=== PATIENT | female | born 1935 | race Caucasian/White ===

== ENCOUNTER 2017-11-29 10:28 | Outpatient (CLI) | payer MEDICARE ==
--- NOTE | 2017-11-29 13:23 | RAD ---
PA AND LATERAL VIEWS CHEST: HISTORY: Dyspnea. COMPARISON: 05/24/2017 FINDINGS: Pleural parenchymal opacity with associated left rib deformities are again seen. The heart size is n ormal. The aorta is tortuous. The lungs are well expanded without focal areas of consolidation, pne umothoraces, or pleural effusions. IMPRESSION: Stable exam. No acute process. POS: [facility]
== END 2017-11-29 10:29 | disposition home or self-care (01) ==
LOC: RAD 10:28
PROVIDERS: ATTEND Internal Medicine Critical Care Medicine
DX: R06.00 Dyspnea, unspecified (principal)
CPT/HCPCS: 71046

== ENCOUNTER 2018-07-12 10:56 | Outpatient (CLI) | payer MEDICARE | END 2018-07-12 10:57 | disposition home or self-care (01) | LOC: BICMAMMO 10:56 | PROVIDERS: ATTEND Internal Medicine | DX: Z12.31 Encounter for screening mammogram for malignant neoplasm of breast (principal); R92.1 Mammographic calcification found on diagnostic imaging of breast; Z85.118 Personal history of other malignant neoplasm of bronchus and lung | CPT/HCPCS: 77063; 77067 ==

== ENCOUNTER 2018-11-28 08:29 | Outpatient (CLI) | payer MEDICARE ==
--- NOTE | 2018-11-28 11:51 | MRI ---
MRI LUMBAR SPINE WITHOUT CONTRAST: Date: 11/28/18 HISTORY: Low back and right leg pain. COMPARISON: None. TECHNIQUE: MRI lumbar spine is performed without intravenous Gadolinium administration. Multisequential, multipl dia imaging is performed. FINDINGS: Appropriate T1 marrow signal intensity of lumbar vertebra. Lumbar spine vertebral body height is main tained. There is no fracture. No significant STIR hyperintensity to suggest vertebral body edema or l igamentous injury. There is mild edema involving the left pedicle and facet joint at L4-L5. There are T1 hypointense, T2 hyperintense lesions along the left aspect of S1 and S2 level, which tra verses the left S1 lateral recess, and minimally extends into the left S2 neural foramen. This lesion measures 2.0 x 1.3 cm. Smaller T1 hypointense, T2 hyperintense lesions are noted in the left and rig ht neural foramina at S1. Conus medullaris terminates at the upper aspect of L1. Symmetric signal intensity of the psoas muscles. T2 hyperintensities in the left and right renal fatimah ices may represent cysts. T12-L1: No significant central canal stenosis or foraminal narrowing. L1-L2: No significant central canal stenosis. Neural foramina are patent. L2-L3: Moderate loss of disc space height. Generalized disc bulge, minimal ligamentum flavum thicken ing, and mild facet hypertrophy result in mild stenosis of the thecal sac. Moderate to severe right a nd moderate left foraminal narrowing. L3-L4: Adequate disc hydration. Minimal generalized disc bulge, mild ligamentum flavum thickening, a nd facet hypertrophy result in mild central canal stenosis. There is narrowing of the left subarticul ar zone secondary to disc material with partial obscuration of the traversing left L4 nerve root. Rig ht neural foramen is patent. Moderate left foraminal narrowing. Small amount of fluid in both facet j oints. L4-L5: 3.5 mm anterolisthesis of L4 upon L5. Desiccation with mild loss of disc space height. Genera lized disc bulge, ligamentum flavum thickening, and facet hypertrophy result in mild to moderate cent ral canal stenosis. There is narrowing of both subarticular zones with some mass effect, without obsc uration of either traversing L5 nerve root. The mass effect upon the right subarticular zone is sligh tly greater than the contralateral side. There is a small amount of inferior disc extrusion in the ri ght subarticular zone which adds to the overall mass effect upon the traversing right L5 nerve root. Mild right and mild to moderate left neural foraminal narrowing. L5-S1: No significant loss of disc space height. No significant central canal stenosis. Neural chasidy maximo are patent bilaterally. IMPRESSION: 1. Intrinsic T1 hypointense, T2 hyperintense lesion at the S1 and S2 level. 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 The lesion at S2 may also represent a aggressive cystic lesion. However, evaluation is limited on the examination and postcontrast imaging is recommended. 2. Degenerative changes of the lumbar spine as described above. POS: [facility]
== END 2018-11-28 08:30 | disposition home or self-care (01) ==
LOC: TBSIIMAG 08:29
PROVIDERS: ATTEND Physical Medicine & Rehabilitation
DX: M54.5 Low back pain (principal); M79.604 Pain in right leg; R29.898 Other symptoms and signs involving the musculoskeletal system; M47.816 Spondylosis without myelopathy or radiculopathy, lumbar region; M89.9 Disorder of bone, unspecified
CPT/HCPCS: 72148

== ENCOUNTER 2019-06-02 15:23 | Emergency (ER) | payer MEDICARE ==
[2019-06-02 15:47] LABS: #Basophils 0.1 thou/uL (0.0-0.2); #Eosinphils 0.1 thou/uL (0.0-0.7); #Monocytes 0.5 thou/uL (0.11-0.59); #Neutrophils 5.1 thou/uL (1.40-6.50); %Basophils 0.8 % (0.0-1.0); %Eosinophils 0.8 % (0.0-10.0); %Lymphocytes 26.4 % (21.0-51.0); %Monocytes 6.2 % (0.0-10.0); %Neutrophils 65.8 % (42.0-75.0); Mean Corpuscular HGB CONC 33.7 g/dL (32.0-36.0); Mean Corpuscular Hemoglobin 31.2 pg (27.0-31.0); Mean Corpuscular Volume 92.8 fL (78.0-98.0); Mean Platelet Volume 7.8 fL (7.4-10.4); Platelet Count 289 thou/uL (130-400); RBC Distribution Width 11.7 % (11.5-14.5); Red Blood Cell (RBC) Count 4.17 mill/uL (4.20-5.40); White Blood Cell (WBC) Count 7.7 thou/uL (4.8-10.8)
[2019-06-02 16:09] LABS: ALT (SGPT) 11 U/L (8-55); AST (SGOT) 21 U/L (5-34); Albumin 4.2 g/dL (3.4-4.8); Alkaline Phosphatase 71 U/L (40-110); Anion Gap 15 mmol/L (10-20); BUN (Urea Nitrogen) 18 mg/dL (9.8-20.1); Bilirubin, Total 0.5 mg/dL (0.2-1.2); Calc. Creatinine Clearance 0 mL/min (70-130); Carbon Dioxide 29 mmol/L (23-31); Chloride 100 mmol/L (98-107); Estimated GFR-MDRD 56; Globulin 3.7 g/dL (2.4-3.5); Glucose 97 mg/dL (83-110); Lipase 29 U/L (8-78); Potassium 4.4 mmol/L (3.5-5.1); Protein, Total 7.9 g/dL (6.0-8.3); Sodium 140 mmol/L (136-145)
[2019-06-02] MEDS ORDERED: Ondansetron PF 4 MG/2 ML Vial ONE (16:10)
[2019-06-02] MEDS ORDERED: Ketorolac Tromethamine 30 MG/ML VIAL ONE (16:10)
[2019-06-02 16:53] LABS: Bilirubin Negative (Negative); Blood, Urine Negative (Negative); Clarity Turbid (Clear); Glucose, Urine (Dipstick) Normal (Negative); Leukocyte 500 Leu/uL (Negative); Nitrite Negative (Negative); Protein, Urine (Dipstick) 20 mg/dL (Neg-Trace); Urobilinogen Normal mg/dL (Less than 2); WBC/HPF Greater than 50 HPF (0-3)
[2019-06-02 17:01] LABS: Bacteria/HPF 2+ HPF (None Seen); RBC/HPF None Seen HPF (0-3)
== END 2019-06-02 17:40 | disposition home or self-care (01) ==
LOC: ERS 15:23
DX: K52.9 Noninfective gastroenteritis and colitis, unspecified (principal); I10 Essential (primary) hypertension; N39.0 Urinary tract infection, site not specified; E03.9 Hypothyroidism, unspecified; M19.90 Unspecified osteoarthritis, unspecified site; E78.1 Pure hyperglyceridemia; Z87.891 Personal history of nicotine dependence; Z79.899 Other long term (current) drug therapy
CPT/HCPCS: 36415; 80053; 81003; 81015; 83690; 85025; 96372; 96374; 96375; J0500; J1885; J2405

== ENCOUNTER 2019-06-05 09:55 | Inpatient (IN) | payer MEDICARE ==
[2019-06-05] MEDS ORDERED: metroNIDAZOLE 500 MG/100 ML BAG ONE (10:21)
[2019-06-05 10:57] LABS: #Basophils 0.1 thou/uL (0.0-0.2); #Eosinphils 0.1 thou/uL (0.0-0.7); #Lymphocytes 1.7 thou/uL (1.20-3.40); #Monocytes 0.7 thou/uL (0.11-0.59); #Neutrophils 4.6 thou/uL (1.40-6.50); %Basophils 0.7 % (0.0-1.0); %Eosinophils 1.6 % (0.0-10.0); %Lymphocytes 23.4 % (21.0-51.0); %Monocytes 9.9 % (0.0-10.0); %Neutrophils 64.5 % (42.0-75.0); Hemoglobin 12.7 g/dL (12.0-16.0); Mean Corpuscular HGB CONC 33.3 g/dL (32.0-36.0); Mean Platelet Volume 8.2 fL (7.4-10.4); Platelet Count 278 thou/uL (130-400); RBC Distribution Width 11.7 % (11.5-14.5); White Blood Cell (WBC) Count 7.1 thou/uL (4.8-10.8)
[2019-06-05 11:09] LABS: ALT (SGPT) 14 U/L (8-55); AST (SGOT) 31 U/L (5-34); Alkaline Phosphatase 70 U/L (40-110); Anion Gap 13 mmol/L (10-20); BUN (Urea Nitrogen) 15 mg/dL (9.8-20.1); Bilirubin, Total 0.4 mg/dL (0.2-1.2); Calc. Creatinine Clearance 0 mL/min (70-130); Calcium 9.7 mg/dL (7.8-10.44); Carbon Dioxide 26 mmol/L (23-31); Chloride 102 mmol/L (98-107); Estimated GFR-MDRD 46; Globulin 3.5 g/dL (2.4-3.5); Glucose 100 mg/dL (83-110); Potassium 3.9 mmol/L (3.5-5.1); Protein, Total 7.5 g/dL (6.0-8.3); Sodium 137 mmol/L (136-145)
[2019-06-05 12:29] LABS: Bilirubin Negative (Negative); Blood, Urine Trace (Negative); Clarity Turbid (Clear); Glucose, Urine (Dipstick) Normal (Negative); Leukocyte 500 Leu/uL (Negative); Nitrite Negative (Negative); Protein, Urine (Dipstick) 30 mg/dL (Neg-Trace); WBC/HPF 21-50 HPF (0-3)
[2019-06-05 12:37] LABS: Bacteria/HPF 2+ HPF (None Seen)
[2019-06-05] MEDS ORDERED: ISOVUE-370 76%-LOCM 1 ML ONE (12:47)
[2019-06-05] MEDS ORDERED: Iopamidol 370 76% 50 ML VIAL FS ONE (12:47)
--- NOTE | 2019-06-05 13:11 | CT ---
EXAM: CT abdomen and pelvis with IV contrast PROVIDED CLINICAL HISTORY: Abdominal pain COMPARISON: 01/10/2017 FINDINGS: The visualized lung bases are free of significant opacity. Small hiatal hernia. Cysts involving the right kidney and liver are again seen. Stable right renal calcification, probably vascular. The solid abdominal organs demonstrate an otherwise unremarkable CT appearance. There is no bowel dilatation, inflammatory fat stranding, free fluid or free air apparent. There is n o evidence for appendicitis. A pessary is now noted. There is apparent mural thickening in the region of the anus. There is a circumscribed focus of low density within the perineal soft tissues at the anterior aspect of the anus and posterior to the vagina. This measures at least 2 cm in AP dimension and about 3.2 cm in craniocaudal dimension. No regional lymph node enlargement apparent. Extensive multifocal atherosclerotic vascular calcificat ions are seen. The osseous structures demonstrate no concerning lytic or blastic lesions. IMPRESSION: Mural thickening involving the anus with adjacent focus of low density. Findings may reflect infectio us change with abscess. Other etiologies are not excluded. Correlation with the physical examination is recommended.
[2019-06-05] MEDS ORDERED: Amlodipine 5 MG TAB PO SCH (19:00)
[2019-06-05] MEDS ORDERED: metroNIDAZOLE 500 MG in Premix Bag 1 BAG IVPB SCH ×2 (20:00→22:00)
[2019-06-05] MEDS: Atenolol 50 MG TAB PO SCH (20:10)
[2019-06-05] MEDS: Sodium Chloride 0.9% 1,000 ML IV SCH (20:12)
[2019-06-05] MEDS: Latanoprost 0.005% Ophth Soln 2.5 ml Bottle EA EYE SCH (20:12)
[2019-06-05] MEDS ORDERED: Famotidine/PF 20 mg/2ml Vial SLOW IVP SCH (21:00)
[2019-06-05] MEDS ORDERED: Ondansetron ODT 4 MG TAB PO PRN (22:26)
[2019-06-05] MEDS: Ondansetron PF 4 MG/2 ML Vial IVP PRN (22:32)
[2019-06-05] MEDS ORDERED: Vancomycin HCl 25 MG/ML Oral PO SCH (23:30)
[2019-06-05] MEDS ORDERED: Saccharomyces boulardii 250 MG CAP PO SCH (23:30)
--- NOTE | 2019-06-06 01:04 | HP ---
CHIEF COMPLAINT: Abdominal pain. HISTORY OF PRESENT ILLNESS: The patient is an 83-year-old female with past medical history of hypertension, hypothyroidism, who presents to the hospital with complaints of abdominal pain and diarrhea going on for the past 7 days. The patient stated that she came into the ER a few days ago on 06/03, with diarrhea and she was discharged home with Cipro and Flagyl; however, she stated that her diarrhea actually got worse, so she came into the ER today for further evaluation. The patient states that she did not have any fevers; however, today she had some chills, her diarrhea was getting worse, she has had about 4 or 5 bouts of loose stool. The patient states that she has been eating and drinking and has been able to keep her liquids down, however, her diarrhea has gotten worse. The patient states that this has happened to her in the past and she did follow up with GI, however, no colonoscopy was done. Her last colonoscopy was done, I believe, in 2011 or 2012. The patient denies eating out anywhere. She denies taking any new medications. She denies any fevers. Denies any sick contacts. Denies any blood in her stool except when she wipes, she gets a little bit of blood in her toilet paper. PAST MEDICAL HISTORY: 1. COPD, history of lung cancer status post radiation. 2. Diverticulitis. 3. Dyslipidemia. 4. Hypertension. 5. Hypothyroidism. 6. Depression. PAST SURGICAL HISTORY: She has had a cholecystectomy, appendectomy, hysterectomy, bladder suspension surgery, hemorrhoid surgery, sinus surgery, cataract surgery, foot surgery, and knee surgery. SOCIAL HISTORY: She denies any alcohol use, tobacco use, or recreational drug use. FAMILY HISTORY: She denies any family history of cancer. CODE STATUS: She is a full code. ALLERGIES: SHE IS ALLERGIC TO: 1. CITALOPRAM. 2. CODEINE. 3. LANSOPRAZOLE. 4. PENICILLIN. 5. SOMA. 6. TAGAMET. 7. VASOTEC. REVIEW OF SYSTEMS: All negative except for the ones mentioned above in the HPI. MEDICATIONS: She takes: 1. Amlodipine 5 mg daily. 2. Atenolol 50 mg at bedtime. 3. Bumex 1 mg daily, which she has held today. 4. Synthroid 100 mcg daily. 5. Lovastatin 20 mg daily. 6. Sertraline 50 mg daily. 7. Ranitidine 300 mg daily. PHYSICAL EXAMINATION: VITAL SIGNS: Her temperature is 98.8, heart rate of 80, blood pressure 190/80, respirations are 18, and 98% on room air. GENERAL: She is awake, alert, and oriented x3. Does not appear in any distress. HEENT: Normocephalic, atraumatic. No lymphadenopathy noted. Pupils are equal, reactive to light. CV: S1 and S2 present. No murmurs, rubs, or gallops. LUNGS: Clear to auscultation. No rhonchi or wheezes noted. ABDOMEN: Soft. Bowel sounds present x2. She does have pain upon palpation all around her abdomen, severe more to her left lower quadrant and around her epigastric area. NEUROVASCULAR: No focal deficits noted. SKIN: No cuts, lesions, or bruises noted. LABORATORY RESULTS: WBCs of 7.1, hemoglobin of 12.7, hematocrit of 38.1, platelets of 278. Chemistry; sodium 137, potassium of 3.9, BUN of 15, creatinine 1.13. Her LFTs are normal. Her urine does indicate she does have some leukocyte esterase and some wbc's. She did have a CT of abdomen and pelvis, which indicated possible rectal abscesses indicating mural thickening involving the anus with adjacent focus of low density. Findings may reflect infectious changes with abscess. ASSESSMENT AND PLAN: The patient is a very pleasant 83-year-old female, who presents to the hospital with complaints of abdominal pain and diarrhea. 1. Diarrhea, acute, could be possible secondary to infectious colitis versus ischemic colitis versus irritable bowel syndrome versus inflammatory bowel syndrome. We will start the patient on broad-spectrum antibiotics with Cipro and Flagyl. We will check C diff and stool cultures and also ova and parasite. I will get Surgery to evaluate for possible mural abscess. Also, I will get GI. We will check a TSH. We will also check a lactic acid. Upon reviewing her records back in 2017, she did have a CTA to rule out any ischemic colitis that was ruled out. The patient stated that she did follow up with GI, however, no followup colonoscopy was done. The patient states that she has had bouts of constipation and diarrhea, could be possibly irritable bowel syndrome. We will start her on some IV hydration and put her on clear liquid diet and we will monitor her closely. 2. Mild dehydration, mild acute kidney injury. We will continue some hydration and continue to monitor. 3. Possible urinary tract infection. She is already on Cipro and Flagyl, which the ciprofloxacin should cover her urinary tract infection. 4. Hypertension. I will continue her home medications and I will hold the Bumex. 5. DVT prophylaxis. Put the patient on some SCDs. Job ID: [id number]
[2019-06-06] MEDS: Acetaminophen 325 MG TAB PO PRN ×2 (01:09→16:15)
[2019-06-06] MEDS: Sodium Chloride 0.9% 1,000 ML IV SCH ×2 (05:53→18:37)
[2019-06-06] MEDS ORDERED: Levothyroxine Sodium 100 MCG TAB PO SCH (06:00)
[2019-06-06 06:25] LABS: #Eosinphils 0.1 thou/uL (0.0-0.7); #Lymphocytes 1.8 thou/uL (1.20-3.40); #Monocytes 0.9 thou/uL (0.11-0.59); #Neutrophils 4.4 thou/uL (1.40-6.50); %Basophils 0.5 % (0.0-1.0); %Eosinophils 0.8 % (0.0-10.0); %Lymphocytes 24.9 % (21.0-51.0); %Monocytes 12.5 % (0.0-10.0); %Neutrophils 61.4 % (42.0-75.0); Hemoglobin 11.6 g/dL (12.0-16.0); Mean Corpuscular HGB CONC 33.5 g/dL (32.0-36.0); Mean Corpuscular Hemoglobin 30.9 pg (27.0-31.0); Mean Corpuscular Volume 92.3 fL (78.0-98.0); Mean Platelet Volume 8.8 fL (7.4-10.4); Platelet Count 185 thou/uL (130-400); RBC Distribution Width 11.8 % (11.5-14.5); Red Blood Cell (RBC) Count 3.74 mill/uL (4.20-5.40); White Blood Cell (WBC) Count 7.2 thou/uL (4.8-10.8)
[2019-06-06 06:48] LABS: ALT (SGPT) 16 U/L (8-55); AST (SGOT) 36 U/L (5-34); Albumin 3.5 g/dL (3.4-4.8); Alkaline Phosphatase 61 U/L (40-110); Anion Gap 14 mmol/L (10-20); BUN (Urea Nitrogen) 13 mg/dL (9.8-20.1); Bilirubin, Total 0.5 mg/dL (0.2-1.2); Calc. Creatinine Clearance 53 mL/min (70-130); Calcium 8.8 mg/dL (7.8-10.44); Carbon Dioxide 22 mmol/L (23-31); Chloride 106 mmol/L (98-107); Estimated GFR-MDRD 55; Globulin 2.8 g/dL (2.4-3.5); Glucose 98 mg/dL (83-110); Potassium 4.1 mmol/L (3.5-5.1); Protein, Total 6.3 g/dL (6.0-8.3); Sodium 138 mmol/L (136-145)
[2019-06-06] MEDS: Ondansetron PF 4 MG/2 ML Vial IVP PRN ×2 (08:44→18:39)
[2019-06-06] MEDS: Saccharomyces boulardii 250 MG CAP PO SCH (08:44)
[2019-06-06] MEDS: Amlodipine 5 MG TAB PO SCH (08:45)
[2019-06-06] MEDS: Vancomycin HCl 25 MG/ML Oral PO SCH ×4 (08:46→20:52)
[2019-06-06] MEDS: Enoxaparin Sodium 40 MG/0.4 ML SYRINGE SC SCH (08:46)
[2019-06-06] MEDS ORDERED: Aspirin 81 mg Enteric Coated Tablet PO SCH (09:00)
[2019-06-06] MEDS ORDERED: Aspirin Chewable 81 MG TAB PO SCH (09:00)
[2019-06-06 15:03] VITALS: BMI 33.7
--- NOTE | 2019-06-06 17:06 | PDOC.GSPN ---
Surgery Progress Note: Subj - Subjective Narrative: Patient seen last night just before midnight. Full consult note to follow. Admitted with lower abdominal pain, but concern for perianal abscess on CT. Patient states she had left lower quadrant pain for about a week, with diarrhea since coming to the ER a few days ago and starting Cipro and Flagyl. She states she has taken Cipro in the past without problems and thinks the Flagyl is giving her the diarrhea. Some anal pain due to hemorrhoids but not severe. Stool for C. difficile had been sent when I saw her but was still pending. On exam she had some mild tenderness in the left lower quadrant. Extensive circumferential inflamed hemorrhoids but no induration and erythema or fluctuance to suggest perianal abscess. I believe CT findings are explained by her extensive hemorrhoidal disease. No further surgical intervention needed urgently, since hemorrhoids are not thrombosed and only mildly symptomatic. When I saw her she was adamant that Flagyl be discontinued since she felt that it was causing her diarrhea. I recommended continuing this until her C. difficile came back, but she did not want to receive any more Flagyl even IV, so I discontinued this per her request. I did order by mouth vancomycin until her C. difficile came back. This is now negative. No evidence of colitis on CT so no clear indication for antibiotics at this time. Further management per her medical team. I am signing off; please call if further concerns. Surgery Progress Note: Obj - Vital signs Vital signs: Vital Signs - Most Recent Temp Pulse Resp BP Pulse Ox 97.7 F 65 18 112/70 95 06/06/19 16:00 06/06/19 16:00 06/06/19 16:00 06/06/19 16:00 06/06/19 16:00 Surgery Progress Note: Results - Labs Result Diagrams: 06/06/19 05:42 06/06/19 05:42 Lab results: Laboratory Results - last 24 hr 06/06/19 06/06/19 05:42 05:42 WBC 7.2 RBC 3.74 L Hgb 11.6 L Hct 34.5 L MCV 92.3 MCH 30.9 MCHC 33.5 RDW 11.8 Plt Count 185 MPV 8.8 Neutrophils % 61.4 Lymphocytes % 24.9 Monocytes % 12.5 H Eosinophils % 0.8 Basophils % 0.5 Neutrophils # 4.4 Lymphocytes # 1.8 Monocytes # 0.9 H Eosinophils # 0.1 Basophils # 0.0 Sodium 138 Potassium 4.1 Chloride 106 Carbon Dioxide 22 L Anion Gap 14 BUN 13 Creatinine 0.96 Estimated GFR (MDRD) 55 Glucose 98 Calcium 8.8 Total Bilirubin 0.5 AST 36 H ALT 16 Alkaline Phosphatase 61 Serum Total Protein 6.3 Albumin 3.5 Globulin 2.8 Albumin/Globulin Ratio 1.3
--- NOTE | 2019-06-06 17:07 | CON ---
DATE OF CONSULTATION: 06/06/2019 CONSULTING PROVIDER: Dr. Marybel Swan. REASON FOR CONSULTATION: Left lower quadrant abdominal pain, diarrhea. HISTORY OF PRESENT ILLNESS: The patient is an 83-year-old female with past medical history of hypertension, hypothyroidism, fibromyalgia, COPD, lung cancer status post radiation therapy, hyperlipidemia, depression, and diverticulitis, presenting with complaints of diarrhea and left lower quadrant abdominal pain. She said that she was in her usual state of health until approximately one and half weeks ago when she began having acute onset of left lower quadrant abdominal pain characterized as a soreness/squeezing type pain that would radiate to the generalized abdomen, was intermittent, but would occur most days and lasted all day, and reached a severity of 8/10. The pain was worse with pressure to the abdomen, eating, and having a bowel movement, better with use of Zofran and placement of the heating pad primarily over the left lower quadrant. Associated symptoms included increased midepigastric abdominal pain, increased eructation, nausea without vomiting, subjective chills and constipation. She states that over the last week and a half, she has been having a change in her bowel habits, having approximately 4 to 5 formed/semi-solid bowel movements per day that were hard and hard to pass and would require increased straining in order to facilitate defecation. She also endorsed increased mucus with expulsion of these bowel movements as well. With the increase of lower back pain, she had been recently taking Tylenol with codeine, but otherwise had been adherent to only Tylenol with the last use of codeine approximately 2 to 3 weeks ago. With the worsening of her pain and diarrhea prompted her to seek healthcare assistance in the [facility] ER on June 03, she was ultimately diagnosed with colitis (presumably diverticulitis) and placed on Cipro and Flagyl; however, over the next 24 to 48 hours, her symptoms worsened with increased abdominal pain and diarrhea, then prompted her to return to the ER. Upon re-initiation of antibiotic therapy including metronidazole as a monotherapy, the patient has been having decrease in her abdominal pain and states that her frequency of bowel movements has improved significantly, having only one bowel movement within the last 12 to 24 hours. Otherwise, she denies any vomiting, melena, hematochezia, hematemesis, dysphagia, odynophagia, or weight loss. REVIEW OF SYSTEMS: A 10-category review of systems was obtained with all responses negative except for the pertinent positives as listed in HPI. PAST MEDICAL HISTORY: As per HPI. PAST SURGICAL HISTORY: Cholecystectomy, appendectomy, hysterectomy, hemorrhoid surgery, sinus surgery, cataract surgery, foot surgery, knee surgery, and bladder suspension surgery (presumably with placement of a pessary). FAMILY HISTORY: She denies any GI malignancies. SOCIAL HISTORY: Denies any tobacco, alcohol, or illicit drug use. OUTPATIENT MEDICATIONS: Reviewed. ALLERGIES: FAMOTIDINE, LANSOPRAZOLE, SULFAMETHOXAZOLE, CARISOPRODOL, CODEINE, ENALAPRIL, ERYTHROMYCIN, SOMA, TAGAMET, AND VASOTEC. PHYSICAL EXAMINATION: VITAL SIGNS: Temperature 98.2, pulse 74, blood pressure 108/52, respiratory rate 22, saturating 93% on room air. GENERAL: The patient was lying in bed, in no acute distress. Alert and oriented x4. HEENT: Normocephalic and atraumatic. NECK: Supple. No JVD or scleral icterus noted. CARDIOVASCULAR: Regular rate and rhythm with no discernible murmurs, gallops, or rubs. RESPIRATORY: Clear to auscultation bilaterally with no discernible wheezes or rales. ABDOMEN: Hypoactive bowel sounds. Soft, nondistended. Tenderness to palpation in all abdominal quadrants. EXTREMITIES: No cyanosis, clubbing, or edema. LABORATORY DATA: CBC with a white blood cell count of 7.2, hemoglobin 11.6, hematocrit 34.5, platelets 185. Chemistry with a sodium of 138, potassium 4.1, chloride 106, CO2 22, BUN 13, creatinine 0.96, glucose 98, AST 36, ALT 16, alkaline phosphatase 61, total bilirubin 0.5. TSH 0.29. Stool studies including lactoferrin, C diff, and ova and parasites were all negative. IMAGING DATA: CT of the abdomen and pelvis obtained on June 05, 2019, showed a small hiatal hernia, mural thickening within the wall of the anus with a circumscribed focus within the wall concerning for possible abscess formation. No mention was made of the sigmoid colon or any inflammation/fat stranding associated in this region. ASSESSMENT AND PLAN: The patient is an 83-year-old female with past medical history of hypertension, hypothyroidism, fibromyalgia, chronic obstructive pulmonary disease, lung cancer status post XRT, hyperlipidemia, depression, and prior history of diverticulitis, presenting with left lower quadrant abdominal pain and associated diarrhea. Left lower quadrant abdominal pain/diarrhea. The patient is presenting with fairly acute onset of increased left lower quadrant abdominal pain characterized as a soreness/squeezing type sensation that generalized to the entire abdomen. In conjunction with the appearance of this pain, she has also been having a change in her bowel habits, having approximately 4 to 5 formed/semi-solid bowel movements per day that were hard and hard to pass and required increased straining in order to facilitate defecation. On her initial evaluation to the ER, she did not exhibit an elevated white blood cell count nor any significant derangements consistent with some underlying process. She was ultimately discharged home with Cipro and Flagyl for repeat bout of diverticulitis; however, with worsening of her symptoms, it prompted her to return to the ER with the current clinical presentation. At this time, she appears to be improving with decreased frequency of bowel movements over the last 12 to 24 hours, although she does continue to have increased left lower quadrant abdominal pain. At this time, the differential could include a repeat bout of diverticulitis has been incompletely treated with antibiotics, constipation with encopresis, hyperthyroidism (given low TSH) segmental colitis associated with diverticular disease and/or GI neoplasm (less likely). Upon chart review, her most recent colonoscopy was approximately 5 to 7 years ago with normal findings during that procedure (although records not are not available for review at this time). RECOMMENDATIONS: 1. Would continue with treatment for diverticulitis with antibiotic therapy for a total duration of therapy of 7 days given that this could be incompletely treated diverticulitis and especially given her history of diverticulitis in the past. 2. Would refrain from any antimotility agents in this patient given her normalization of stool frequency within the last 12 to [address] the patient on Citrucel as part of fiber supplementation to normalize her stool consistency/habits. 4. Would consider decreasing her levothyroxine given evidence of over-supplementation. 5. Would refrain from any antimotility agents at this time, including narcotics if possible. 6. Continue with IV fluid resuscitation. We will continue to follow. Please call with any questions. Job ID: [id number]
[2019-06-06] MEDS: Atenolol 50 MG TAB PO SCH (20:52)
[2019-06-06] MEDS: Latanoprost 0.005% Ophth Soln 2.5 ml Bottle EA EYE SCH (20:52)
--- NOTE | 2019-06-07 00:21 | CON ---
DATE OF CONSULTATION: 06/05/2019 REASON FOR CONSULT: Possible perianal abscess. HISTORY OF PRESENT ILLNESS: Ms. Ordoñez is an 83-year-old woman, who initially presented to the emergency room a few days ago with a several-day history of lower abdominal pain and loose stools. She was given Cipro and Flagyl, but states that the diarrhea got much worse and the abdominal pain was now better, so she returns to the emergency room. She underwent a CT of the abdomen and pelvis. No evidence of colitis was seen. However, she did have some changes in the perianal abscess which was felt to be suspicious for possible perianal abscess with some mural thickening and a circumscribed focus of low density in the anterior aspect. The patient denies any significant perianal pain, although she states that she does have some soreness in that area due to her hemorrhoids flaring with profuse diarrhea. At the time of her admission, she was having frequent liquid bowel movements and her nurse had sent some stool samples to the lab for C diff. However, these results were not back when I saw her. The patient states that she has taken ciprofloxacin before and not had any problems with it and that she believes that her diarrhea is due to the Flagyl. She had been ordered to have IV Flagyl, but did not want to get this. The patient states that she is keeping down liquids, but having profuse diarrhea. PAST MEDICAL HISTORY: COPD, lung cancer status post radiation, hypertension, hypothyroidism, hyperlipidemia, history of diverticulitis. PAST SURGICAL HISTORY: Cholecystectomy, appendectomy, hysterectomy, bladder suspension, hemorrhoid surgery, sinus surgery, cataract, foot surgery, knee surgery. SOCIAL HISTORY: She does not smoke, drink, or use illicit drugs. FAMILY HISTORY: Noncontributory. ALLERGIES: SHE REPORTS ALLERGIES TO PENICILLIN, LANSOPRAZOLE, CODEINE, CITALOPRAM, SOMA, TAGAMET AND VASOTEC. REVIEW OF SYSTEMS: Ten-system review of systems is negative except per HPI. She did feel like she was having some chills earlier in the day, but none at the time that I saw her. MEDICATIONS: Outpatient medications include, 1. Amlodipine. 2. Atenolol. 3. Bumex. 4. Synthroid. 5. Lovastatin. 6. Sertraline. 7. Ranitidine. Inpatient medications include, 1. Amlodipine. 2. Aspirin. 3. IV Cipro and Flagyl. 4. Synthroid. 5. Zoloft. 6. Latanoprost eyedrops. 7. Atenolol. 8. Multiple p.r.n. PHYSICAL EXAMINATION: VITAL SIGNS: The patient is afebrile. Heart rate 70, respirations 19, 92% saturated on room air, blood pressure 180/69. GENERAL: Reveals an ill-appearing elderly woman, in no acute distress, sitting on the toilet, but able to transfer herself back to the bed. HEENT: Unremarkable. NECK: Supple without lymphadenopathy. HEART: Regular in its rate and rhythm without murmurs, rubs, or gallops. LUNGS: Clear to auscultation bilaterally. ABDOMEN: Soft and nondistended. She has mild tenderness to palpation in the left lower quadrant without rigidity, rebound, or guarding. No palpable masses or hernias. She has an overhanging pannus. EXTREMITIES: Warm and well perfused without significant edema. NEURO: No focal deficits. PSYCHIATRIC: Alert, oriented, and appropriate. : Anal exam reveals circumferential inflamed external and some prolapsing internal hemorrhoids. Digital rectal examination was performed. No significant tenderness, fluctuance, or induration in the perianal area. IMAGING: CT images are reviewed and I agree with the written report. LABORATORY DATA: White count is normal without a left shift, hematocrit 38, platelets 278. BUN 15, creatinine mildly elevated at 1.13. Other electrolytes are normal and LFTs are normal. ASSESSMENT: Left lower quadrant pain and diarrhea consistent with colitis, but without evidence of diverticulitis or colitis seen on CT. The patient did not want to be on Flagyl p.o. or IV, but since her Clostridium diff screening was still pending at the time I saw her, I recommended that she start oral Flagyl, she was agreeable to this. I also recommended Florastor for her GI symptoms. She does not have any evidence of a perianal abscess and I believe that the findings noted on CT are attributable to her hemorrhoidal disease. This is longstanding and she has already gone through surgery for this in the past. These are not terribly symptomatic and she does not want to undergo any surgical intervention for these nor would this be feasible in the setting of her acute illness. Symptomatic management is recommended. No evidence of a surgical process. I am signing off for now, but please consult if she develops any further issues. Job ID: [id number]
[2019-06-07] MEDS ORDERED: Simethicone Chewable 80 MG TAB PO PRN (00:23)
[2019-06-07] MEDS: Acetaminophen 325 MG TAB PO PRN ×2 (00:48→20:01)
[2019-06-07] MEDS: Levothyroxine Sodium 75 MCG TAB PO SCH (05:34)
[2019-06-07] MEDS: Enoxaparin Sodium 40 MG/0.4 ML SYRINGE SC SCH (08:13)
[2019-06-07] MEDS: Amlodipine 5 MG TAB PO SCH (08:13)
[2019-06-07] MEDS: Saccharomyces boulardii 250 MG CAP PO SCH (08:13)
[2019-06-07] MEDS: Citrucel 500 MG TAB PO SCH (08:14)
[2019-06-07] MEDS: metroNIDAZOLE 500 MG TAB PO SCH ×2 (16:00→20:02)
--- NOTE | 2019-06-07 18:01 | PRG ---
DATE OF SERVICE: 06/07/2019 REASON FOR CONSULTATION: Left lower quadrant abdominal pain, diarrhea. SUBJECTIVE: Today, the patient states that she did well overnight with no acute events or problems. She did have one episode of diarrhea last night but has not had a bowel movement as of yet today. The consistency of her bowel movement last night was roughly semi-solid with no difficulty with defecation. She also states that her left lower quadrant abdominal pain has significantly improved with it only being mildly tender to palpation today. Otherwise, she denies any nausea, vomiting, fevers, chills, hematemesis, melena, hematochezia. OBJECTIVE: VITAL SIGNS: Temperature 97.3, pulse 60, blood pressure 143/54, respiratory rate 20, saturating 94% on room air. GENERAL: The patient was sitting at bedside, in no acute distress. Alert and oriented x4. CARDIOVASCULAR: Regular rate and rhythm. RESPIRATORY: Clear to auscultation bilaterally. ABDOMEN: Normoactive bowel sounds. Soft, nondistended, mild tenderness in the left upper quadrant and left lower quadrant. EXTREMITIES: No cyanosis, clubbing, or edema. LABORATORY DATA: No current studies are available for review. ASSESSMENT AND PLAN: The patient is an 83-year-old female with past medical history of hypertension, hypothyroidism, fibromyalgia, chronic obstructive pulmonary disease, lung cancer status post XRT, hyperlipidemia, depression, and prior history of diverticulitis presenting with left lower quadrant abdominal pain and associated diarrhea. Left lower quadrant abdominal pain/diarrhea. The patient initially presented with acute onset of left lower quadrant abdominal pain that generalized to the entire abdomen and was associated with a change in her bowel habits having approximately 4 to 5 formed/semi-solid bowel movements per day. She was seen in the ER prior to the actual hospital admission and diagnosed with diverticulitis and placed on ciprofloxacin and Flagyl but did have worsening of her symptoms prompting her return to the ER. At this point, she is improving with more conservative measures including antibiotic administration, IV fluids and low-fiber diet with improvement of her stooling pattern and pain over the last 12 to 24 hours. At this time, the more likely explanation for her pain would be a repeat bout of diverticulitis that was incompletely treated prior to this hospital admission. However, the differential could also include constipation with encopresis, hyperthyroidism, segmental colitis associated with diverticular disease. RECOMMENDATIONS: 1. We will continue treatment of the diverticulitis with antibiotic therapy for a total duration of therapy of 7 days with ciprofloxacin and metronidazole. 2. Would refrain from any antimotility agents at this time given decreased frequency of bowel movements and normalization of her stool consistency. 3. Continue Citrucel as part of fiber supplementation. 4. We will limit narcotics if possible. 5. With advancing the patient's diet, would consider discontinuation of IV fluids. Given the improvement of her abdominal pain and return of more normal stool consistency, she could be potentially discharged as early as tomorrow with administration of oral antibiotics and completion of her therapy at home and follow up within the GI clinic in 2 to 3 weeks. We will continue to follow. Please call with any questions. Job ID: [id number]
[2019-06-07] MEDS: Cipro 250 MG TAB PO SCH (19:57)
[2019-06-07] MEDS: Atenolol 50 MG TAB PO SCH (19:57)
[2019-06-07] MEDS: Latanoprost 0.005% Ophth Soln 2.5 ml Bottle EA EYE SCH (19:58)
[2019-06-08] MEDS: Levothyroxine Sodium 75 MCG TAB PO SCH (05:36)
[2019-06-08] MEDS: Cipro 250 MG TAB PO SCH (05:36)
[2019-06-08] MEDS: Sodium Chloride 0.9% 1,000 ML IV SCH (07:37)
--- NOTE | 2019-06-08 08:23 | PDOC.HOSPP ---
- Subjective Encounter Date: 06/07/19 Encounter Time: 11:30 Subjective: pt up in bed no complains - Objective Vital Signs & Weight: Vital Signs (12 hours) Temp Pulse Resp BP Pulse Ox 06/08/19 07:50 97.5 F L 60 19 128/55 L 93 L Weight Admit Weight 173 lb Weight 173 lb I&O: 06/07/19 06/08/19 06/09/19 06:59 06:59 06:59 Intake Total 800 880 Balance 800 880 Result Diagrams: 06/06/19 05:42 06/06/19 05:42 Hospitalist ROS - Review of Systems Cardiovascular: denies: chest pain, palpitations, orthopnea, paroxysmal noc. dyspnea, edema, light headedness, other Gastrointestinal: denies: nausea, vomiting, abdominal pain, diarrhea, constipation, melena, hematochezia, other Genitourinary: denies: dysuria, frequency, incontinence, hematuria, retention, other - Medication Medications: Active Medications Generic Name Dose Route Start Last Admin Trade Name Freq PRN Reason Stop Dose Admin Acetaminophen 650 mg 06/05/19 17:48 06/07/19 20:01 Tylenol PO 650 mg Q4H PRN Administration Headache/Fever/Mild Pain (1-3) Amlodipine Besylate 5 mg 06/06/19 09:00 06/07/19 08:13 Norvasc PO 5 mg QAM VILMA Administration Atenolol 50 mg 06/05/19 21:00 06/07/19 19:57 Tenormin PO 50 mg HS VILMA Administration Ciprofloxacin 250 mg 06/07/19 20:00 06/08/19 05:36 Cipro PO 250 mg BID@0600,2000 VILMA Administration Enoxaparin Sodium 40 mg 06/06/19 09:00 06/07/19 08:13 Lovenox SC 40 mg 0900 VILMA Administration Sodium Chloride 1,000 mls @ 50 mls/hr 06/05/19 19:15 06/08/19 07:37 Normal Saline 0.9% IV Not Given .Q20H VILMA Latanoprost 1 drop 06/05/19 21:00 06/07/19 19:58 Xalatan 0.005% Ophth Soln EA EYE 1 drop HS VILMA Administration Levothyroxine Sodium 75 mcg 06/07/19 06:00 06/08/19 05:36 Synthroid PO 75 mcg 0600 VILMA Administration Methylcellulose 500 mg 06/07/19 09:00 06/07/19 08:14 Citrucel PO Not Given DAILY VILMA Metronidazole 500 mg 06/07/19 15:00 06/07/19 20:02 Flagyl PO Not Given TID VILMA Ondansetron HCl 4 mg 06/05/19 22:26 06/06/19 18:39 Zofran IVP 4 mg Q6H PRN Administration Nausea/Vomiting Saccharomyces Boulardii 250 mg 06/06/19 09:00 06/07/19 08:13 Florastor PO 250 mg DAILY VILMA Administration Sertraline HCl 50 mg 06/05/19 21:00 06/07/19 20:00 Zoloft PO 50 mg HS VILMA Administration Simethicone 80 mg 06/07/19 00:23 06/07/19 00:45 Mylicon Chewable PO 80 mg PCHS PRN Administration Gas Pain Sodium Chloride 10 ml 06/07/19 21:00 06/07/19 20:01 Flush - Normal Saline IVF 10 ml Q12HR VILMA Administration - Exam Neck: negative: supple, symmetric, no JVD, no thyromegaly, no lymphadenopathy, no carotid bruit, JVD Heart: negative: RRR, no murmur, no gallops, no rubs, normal peripheral pulses, irregular, diminshed peripheral pulses, murmur present, II/IV, III/IV Respiratory: negative: CTAB, no wheezes, no rales, no ronchi, normal chest expansion, no tachypnea, normal percussion, rales, rhonchi, tachypneic, wheezes Hosp A/P (1) Diarrhea Code(s): R19.7 - DIARRHEA, UNSPECIFIED Status: Acute (2) HLD (hyperlipidemia) Code(s): E78.5 - HYPERLIPIDEMIA, UNSPECIFIED Status: Chronic (3) HTN (hypertension) Code(s): I10 - ESSENTIAL (PRIMARY) HYPERTENSION Status: Chronic (4) Hypothyroidism Code(s): E03.9 - HYPOTHYROIDISM, UNSPECIFIED Status: Chronic (5) Obesity (BMI 30-39.9) Code(s): E66.9 - OBESITY, UNSPECIFIED Status: Chronic (6) Hypokalemia Code(s): E87.6 - HYPOKALEMIA Status: Resolved - Plan cdiff negative, will stop vanco. will start abx per gi recommendation. No surgical intervention per surgery. 06/07 will advance diet and see how she does, possible discharge in am if she does well. stop iv fluids.
[2019-06-08] MEDS: Citrucel 500 MG TAB PO SCH (08:29)
[2019-06-08] MEDS: Saccharomyces boulardii 250 MG CAP PO SCH (08:29)
[2019-06-08] MEDS: metroNIDAZOLE 500 MG TAB PO SCH ×2 (08:29→14:26)
[2019-06-08] MEDS: Amlodipine 5 MG TAB PO SCH (08:29)
[2019-06-08] MEDS: Enoxaparin Sodium 40 MG/0.4 ML SYRINGE SC SCH (08:29)
[2019-06-08] MEDS: Acetaminophen 325 MG TAB PO PRN (08:40)
[2019-06-08] MEDS ORDERED: Furosemide 20 MG/2 ML VIAL SLOW IVP SCH (10:45)
[2019-06-08 17:27] VITALS: BP 154/53; TEMP 97.4
--- NOTE | 2019-06-09 02:01 | DIS ---
DATE OF ADMISSION: 06/05/2019 DATE OF DISCHARGE: 06/08/2019 DISCHARGE DIAGNOSES: As of the following; 1. Diarrhea, most likely secondary to diverticulitis. 2. Hyperlipidemia. 3. Hypertension. 4. Hypothyroidism. 5. Obesity. HOSPITAL COURSE: The patient is an 83-year-old female who presented to the hospital with a significant amount of diarrhea. She had microbiology done including C diff and stool lactoferrin. Stool lactoferrin was negative, C diff was negative. Her rapid parasite screen was negative. The patient's symptoms continued to improve through the hospital stay. While she was in the hospital, she also had a CT of abdomen and pelvis, which indicated a possible rectal abscess. It indicated a mural thickening involving the anus and adjacent foci of low density. At this time, Surgery was consulted and the patient was evaluated by Surgery who did not think this was an abscess, recommended no surgical intervention. The thoughts were possible just hemorrhoids. The patient also was seen by GI. At this time, she was put on antibiotics and some fiber. Her symptoms improved through the hospital stay. She will be discharged home. Her home medications are as of the following, 1. Lactobacillus one tab daily. 2. Ranitidine 300 mg at bedtime. 3. Sertraline 50 mg at bedtime. 4. Bumex 1 daily. 5. Atenolol 50 mg at bedtime. 6. Flagyl 500 mg t.i.d. 7. Levothyroxine, I have decreased the dose from 100 mcg to 75 since her TSH was low. 8. Cipro 250 mg b.i.d. 9. Cellothyl 500 mg p.o. daily. PHYSICAL EXAMINATION: VITAL SIGNS: Temperature of 98.8, heart rate 60, respiratory rate 19, O2 saturation 96% on room air, blood pressure 152/65. GENERAL: She is awake, alert, and oriented x3. Does not appear in any distress. CV: S1, S2 present. No murmurs, rubs, or gallops. ABDOMEN: Soft and nontender. Bowel sounds are present x2. EXTREMITIES: No edema. Pedal pulses are present x2. Again, she will be discharged home. She will follow up with her primary. I have made changes with her Synthroid. Her Synthroid level has been changed from 100 mcg to 75 mcg. This was advised to the patient and I have asked her to follow up with her primary. I will also order her some Imodium since she feels that Flagyl causes her to have more diarrhea, which I have told her that is not the case. Also she is going to follow up with GI as an outpatient. Job ID: [id number]
--- NOTE | 2019-06-11 06:01 | PQF ---
LOLITA GOOD KARISHMA [id number] CLINICAL DOCUMENTATION CLARIFICATION FORM: POST DISCHARGE Addendum to original discharge summary date: ____ Late entry note date: __ DATE: 06-11-2019 ATTN:Marybel Madrid Please exercise your independent, professional judgment in responding to the clarification form. Clinical indicators are provided on the bottom of this form for your review Please check appropriate box(s): [ ] Diverticulitis [ ] Hemorrhoids [ ]or other more diagnosis, please specify: [ ] unable to determine In addition, please specify: Present on Admission (POA): [ ] Yes [ ] No [ ] Unable to determine For continuity of documentation, please document condition throughout progress notes and discharge summary. Thank You. Clinical Indicators: DS 06/08 "Diarrhe most likely secondary to diverticulitis" DS 06/08 "patient wa evaluated by surgery who did not think this was an abscess , recommended no surgical intervation. The thoughts were possible just hemorrhoids" ED Notes 06/05 "patient presents for evaluation of abdominal pain" ED Notes 06/05 "reports abdominal pain and diarrhea" HP 06/05 "CT of abdomen and pelvis which indicated possible rectal abscess" Consult 06/06 "admitted with lower abdominal pain but concern for perianal abscess on CT" PN 06/06 "C diff negative" Risk factors: ED Notes 06/05-83 years old female ED Notes 06/05-Colitis HP 06/05-Diverticulitis HP 06/05-Dehydration Consult 06/06-Hemorrhoids Treatments: Collected 06/05-Abdomen/Pelvis CT HP 06/05-C.diff exam HP 06/05-Stool culture HP 06/05-IVF DS 06/08-Surgery consult DS 06/08-GI consult DS 06/08-Lactobacillus one tab a day MAR 06/05-Flagyl 500mg Oral (This form is maintained as a part of the permanent medical record) 2014 [employer], [employer]. All Rights Reserved Janet [email or web address] [not provided] MTDD
== END 2019-06-08 17:55 | disposition home or self-care (01) | DRG 394 ==
LOC: ERS 09:55 → T4-A 16:18
PROVIDERS: ADMIT Internal Medicine; ATTEND Internal Medicine
DX: K64.9 Unspecified hemorrhoids (principal); K57.92 Diverticulitis of intestine, part unspecified, without perforation or abscess without bleeding; N17.9 Acute kidney failure, unspecified; J44.9 Chronic obstructive pulmonary disease, unspecified; I10 Essential (primary) hypertension; E78.5 Hyperlipidemia, unspecified; E78.1 Pure hyperglyceridemia; E03.9 Hypothyroidism, unspecified; M19.90 Unspecified osteoarthritis, unspecified site; M79.7 Fibromyalgia; E86.0 Dehydration; E66.9 Obesity, unspecified; E87.6 Hypokalemia; Z68.33 Body mass index [BMI] 33.0-33.9, adult; Z85.118 Personal history of other malignant neoplasm of bronchus and lung; Z92.3 Personal history of irradiation; Z90.710 Acquired absence of both cervix and uterus; Z87.891 Personal history of nicotine dependence; Z88.2 Allergy status to sulfonamides; Z88.8 Allergy status to other drugs, medicaments and biological substances; Z88.1 Allergy status to other antibiotic agents; Z88.5 Allergy status to narcotic agent; Z91.010 Allergy to peanuts; Z90.49 Acquired absence of other specified parts of digestive tract
CPT/HCPCS: 36415; 74177; 80053; 81003; 81015; 83605; 83630; 83690; 84443; 85025; 87324; 87328; 87329; 87449; 94640; 96365; 96366; 96367; 96372; 96374; 96375; J0500; J0744; J1650; J1885; J1940; J2405; J7620; Q0162; Q9966; Q9967

== ENCOUNTER 2019-09-27 13:28 | Outpatient (CLI) | payer MEDICARE ==
--- NOTE | 2019-09-27 14:33 | MMO ---
Bilateral MAMMO Bilat Screen [facility]. CLINICAL HISTORY: Patient is 84 years old and is seen for screening. The patient has no family history of breast cancer. The patient has no personal history of cancer. VIEWS: The views performed were: bilateral craniocaudal with tomosynthesis and bilateral mediolateral oblique with tomosynthesis. FILMS COMPARED: The present examination has been compared to prior imaging studies performed at [facility] on 06/16/2015, 06/23/2016, 06/27/2017 and 07/12/2018. This study has been interpreted with the assistance of computer-aided detection. MAMMOGRAM FINDINGS: There are scattered fibroglandular densities. Finding 1: There are stable benign appearing calcifications seen in both breasts. Finding 2: There is a stable nodule measuring 4 millimeters with circumscribed margins seen in the sub-areolar region of the left breast. There are no suspicious masses, suspicious calcifications, or new areas of architectural distortion. IMPRESSION: THERE IS NO MAMMOGRAPHIC EVIDENCE OF MALIGNANCY. A ROUTINE FOLLOW-UP MAMMOGRAM IN 1 YEAR IS RECOMMENDED. THE RESULTS OF THIS EXAM WERE SENT TO THE PATIENT. ACR BI-RADS Category 2 - Benign finding MAMMOGRAPHY NOTE: 1. A negative mammogram report should not delay a biopsy if a dominant of clinically suspicious mass is present. 2. Approximately 10% to 15% of breast cancers are not detected by mammography. 3. Adenosis and dense breasts may obscure an underlying neoplasm. Reported by: FRANCIS DE LA VEGA MD Electonically Signed: [id number]
== END 2019-09-27 13:29 | disposition home or self-care (01) ==
LOC: BICMAMMO 13:28
PROVIDERS: ATTEND Internal Medicine
DX: Z12.31 Encounter for screening mammogram for malignant neoplasm of breast (principal)
CPT/HCPCS: 77063; 77067

== ENCOUNTER 2020-08-13 15:15 | Outpatient (CLI) | payer MEDICARE ==
--- NOTE | 2020-08-14 10:58 | RAD ---
PA AND LATERAL CHEST: Date: 08/13/2020 HISTORY: Dyspnea. COMPARISON: None. FINDINGS: Heart size is slightly enlarged. Atherosclerotic changes of aorta. Chronic pleural based calcificatio n and deformity to the left rib cage is noted. I have no previous films for comparison, but I would s uspect all these changes are chronic. The right lung is clear. IMPRESSION: 1. Probable chronic pleural and parenchymal lung changes in the left upper lobe. 2. Mild cardiomegaly. POS: [facility]
== END 2020-08-13 15:16 | disposition home or self-care (01) ==
LOC: BICRAD 15:15
PROVIDERS: ATTEND Internal Medicine Critical Care Medicine
DX: R06.00 Dyspnea, unspecified (principal); I51.7 Cardiomegaly
CPT/HCPCS: 71046

== ENCOUNTER 2021-05-19 13:07 | Outpatient (CLI) | payer MEDICARE | END 2021-05-19 13:08 | disposition home or self-care (01) | LOC: BICMAMMO 13:07 | PROVIDERS: ATTEND Internal Medicine | DX: Z12.31 Encounter for screening mammogram for malignant neoplasm of breast (principal) | CPT/HCPCS: 77063; 77067 ==

== ENCOUNTER 2022-01-25 15:05 | Outpatient (CLI) | payer MEDICARE | END 2022-01-25 15:06 | disposition home or self-care (01) | LOC: RAD 15:05 | PROVIDERS: ATTEND Internal Medicine Critical Care Medicine | DX: R06.00 Dyspnea, unspecified (principal); I51.7 Cardiomegaly | CPT/HCPCS: 71046 ==

== ENCOUNTER 2022-06-30 14:17 | Emergency (ER) | payer MEDICARE ==
[~2022-06-30 14:17] MED LIST: Iopamidol-370 76% 500 ML 1 ML ONE
[2022-06-30 15:43] LABS: #Eosinphils 0.4 thou/uL (0.0-0.7); #Monocytes 1.4 thou/uL (0.11-0.59); #Neutrophils 6.6 thou/uL (1.40-6.50); %Basophils 0.2 % (0.0-1.0); %Eosinophils 4.2 % (0.0-10.0); %Lymphocytes 18.7 % (21.0-51.0); %Monocytes 13.5 % (0.0-10.0); %Neutrophils 63.4 % (42.0-75.0); Hemoglobin 11.6 g/dL (12.0-16.0); Mean Corpuscular HGB CONC 31.7 g/dL (32.0-36.0); Mean Corpuscular Hemoglobin 30.7 pg (27.0-31.0); Mean Corpuscular Volume 96.8 fl (78.0-98.0); Mean Platelet Volume 7.9 fL (7.4-10.4); Platelet Count 330 thou/uL (130-400); RBC Distribution Width 11.4 % (11.5-14.5); Red Blood Cell (RBC) Count 3.77 mill/uL (4.20-5.40); White Blood Cell (WBC) Count 10.4 thou/uL (4.8-10.8)
[2022-06-30 16:03] LABS: ALT (SGPT) 10 U/L (8-55); AST (SGOT) 16 U/L (5-34); Albumin 4.1 g/dL (3.4-4.8); Alkaline Phosphatase 142 U/L (40-110); Anion Gap 15 mmol/L (10-20); BUN (Urea Nitrogen) 25 mg/dL (9.8-20.1); Bilirubin, Total 0.6 mg/dL (0.2-1.2); Calc. Creatinine Clearance 0 mL/min (70-130); Calcium 9.6 mg/dL (7.8-10.44); Carbon Dioxide 30 mmol/L (23-31); Chloride 98 mmol/L (98-107); Estimated GFR 41; Globulin 3.1 g/dL (2.4-3.5); Glucose 93 mg/dL (83-110); Potassium 4.1 mmol/L (3.5-5.1); Protein, Total 7.2 g/dL (5.8-8.1); Sodium 139 mmol/L (136-145)
[2022-06-30 16:37] LABS: Bilirubin Negative (Negative); Blood, Urine Negative (Negative); Clarity Clear (Clear); Glucose, Urine (Dipstick) Normal (Negative); Ketone, Urine Negative (Negative); Leukocyte 75 Leu/uL (Negative); Nitrite Negative (Negative); Protein, Urine (Dipstick) Negative (Neg-Trace); RBC/HPF 0-3 HPF (0-3); Specific Gravity, Urine 1.008 (1.002-1.036); Squamous Epithelial None Seen HPF (0-3); Urobilinogen Normal mg/dL (Less than 2); WBC/HPF 0-3 HPF (0-3); pH, Urine 5.5 (5.0-9.0)
[2022-06-30 16:48] LABS: Bacteria/HPF 1+ HPF (None Seen)
== END 2022-06-30 19:28 | disposition home or self-care (01) ==
LOC: ERS 14:17
DX: K76.9 Liver disease, unspecified (principal); K86.9 Disease of pancreas, unspecified; R53.1 Weakness; I10 Essential (primary) hypertension; J44.9 Chronic obstructive pulmonary disease, unspecified; E03.9 Hypothyroidism, unspecified; E78.5 Hyperlipidemia, unspecified; E78.00 Pure hypercholesterolemia, unspecified; Z87.891 Personal history of nicotine dependence
CPT/HCPCS: 36415; 71045; 74177; 80053; 81003; 81015; 83690; 84443; 84484; 85025; 93005; Q9967

== ENCOUNTER 2022-07-09 08:45 | Outpatient (CLI) | payer MEDICARE | END 2022-07-09 08:46 | disposition home or self-care (01) | LOC: PET 08:45 | PROVIDERS: ATTEND Internal Medicine Hematology & Oncology | DX: C34.90 Malignant neoplasm of unspecified part of unspecified bronchus or lung (principal); K76.9 Liver disease, unspecified | CPT/HCPCS: 78815; A9552 ==

== ENCOUNTER 2022-07-12 08:21 | Day surgery (SDC) | payer MEDICARE ==
[2022-07-06 15:48] VITALS: BMI 30.1
[2022-07-12 08:54] LABS: PTT 34.7 sec (22.9-36.1); Prothrombin Time 13.8 sec (12.0-14.7)
[2022-07-12 09:40] VITALS: BP 196/72; TEMP 99.5
== END 2022-07-12 09:40 | disposition home or self-care (01) ==
LOC: CT 08:21
PROVIDERS: ATTEND Internal Medicine Hematology & Oncology
DX: C78.7 Secondary malignant neoplasm of liver and intrahepatic bile duct (principal); C34.02 Malignant neoplasm of left main bronchus; M19.90 Unspecified osteoarthritis, unspecified site; M79.7 Fibromyalgia; I10 Essential (primary) hypertension; E03.9 Hypothyroidism, unspecified; K44.9 Diaphragmatic hernia without obstruction or gangrene; K21.9 Gastro-esophageal reflux disease without esophagitis; E78.5 Hyperlipidemia, unspecified; E66.9 Obesity, unspecified; Z68.30 Body mass index [BMI] 30.0-30.9, adult; Z53.8 Procedure and treatment not carried out for other reasons; Z87.11 Personal history of peptic ulcer disease; Z87.891 Personal history of nicotine dependence; Z88.1 Allergy status to other antibiotic agents; Z88.2 Allergy status to sulfonamides; Z88.5 Allergy status to narcotic agent; Z88.8 Allergy status to other drugs, medicaments and biological substances; Z79.899 Other long term (current) drug therapy
CPT/HCPCS: 85610; 85730

== ENCOUNTER 2022-07-21 08:17 | Day surgery (SDC) | payer MEDICARE ==
[2022-07-20 14:33] VITALS: BMI 30.2
[~2022-07-21 08:17] MED LIST changes: +FLU VACC QS2022-23(65YR UP)/PF 240 MCG/0.7 ML SYRINGE IM ONE; -Iopamidol-370 76% 500 ML 1 ML ONE
[2022-07-21] MEDS ORDERED: FENTANYL 50 MCG/ML 1 ML VIAL ONE (09:57)
[2022-07-21] MEDS ORDERED: Lidocaine 2% PF 5 ML VIAL ONE (09:58)
[2022-07-21] MEDS ORDERED: Sodium Bicarbonate 2.5 MEQ/5 ML VIAL ONE (09:58)
[2022-07-21] MEDS ORDERED: Midazolam HCl 2 mg/2 ml Vial ONE (09:58)
[2022-07-21] MEDS ORDERED: Acetaminophen 500 MG TAB ONE (11:41)
== END 2022-07-21 14:31 | disposition home or self-care (01) ==
LOC: CT 08:17
PROVIDERS: ATTEND Internal Medicine Hematology & Oncology
PROC: 0FB13ZX Excision of Right Lobe Liver, Percutaneous Approach, Diagnostic (ICD-10-PCS; principal; 2022-07-21)
DX: C78.7 Secondary malignant neoplasm of liver and intrahepatic bile duct (principal); M19.90 Unspecified osteoarthritis, unspecified site; M79.7 Fibromyalgia; I11.0 Hypertensive heart disease with heart failure; I50.9 Heart failure, unspecified; E03.9 Hypothyroidism, unspecified; J44.9 Chronic obstructive pulmonary disease, unspecified; K21.9 Gastro-esophageal reflux disease without esophagitis; E78.5 Hyperlipidemia, unspecified; Z85.118 Personal history of other malignant neoplasm of bronchus and lung; Z87.891 Personal history of nicotine dependence; Z79.890 Hormone replacement therapy; Z79.899 Other long term (current) drug therapy; Z88.1 Allergy status to other antibiotic agents; Z88.2 Allergy status to sulfonamides; Z88.5 Allergy status to narcotic agent; Z88.8 Allergy status to other drugs, medicaments and biological substances
CPT/HCPCS: 47000; 77012; 88307; 88333; 88341; 88342; 88360; J2001; J2250; J3010